=== PATIENT | female | born 1980 | race American Indian/Alaskan Native ===

== ENCOUNTER 2018-07-23 15:05 | Emergency (ER) | payer MEDICAID, OTHER ==
[2018-07-23] MEDS ORDERED: Iohexol 240 (50 ml) PO ONE (16:53)
[2018-07-23] MEDS ORDERED: Sodium Chloride 0.9% 1,000 ML IV STA (16:58)
--- NOTE | 2018-07-23 17:01 | ED PDOC ---
HPI: Abdomen Time Seen by Provider: 07/23/18 15:30 Chief Complaint (Nursing): Abdominal Pain Chief Complaint (Provider): Abdominal Pain History Per: Patient History/Exam Limitations: no limitations Onset/Duration Of Symptoms: Persistent, Worse Since (today) Current Symptoms Are (Timing): Still Present Additional Complaint(s): 37 year old female presents to ED with a complaint of diffuse abdominal pain, ongoing for a few months but worsen today. She reports associated nausea and loose stools but denies any fever or chills. Patient states that she had similar symptoms in the past and was advised to follow up with specialist but has not, yet, made an appointment. PCP: none provided Past Medical History Reviewed: Historical Data, Nursing Documentation, Vital Signs Vital Signs: Last Vital Signs Temp 98.2 F 07/23/18 15:45 Pulse 84 07/23/18 15:45 Resp 18 07/23/18 15:45 BP 112/75 07/23/18 15:45 Pulse Ox 100 07/23/18 15:45 - Medical History PMH: Bipolar Disorder, Hypercholesterolemia - Family History Family History: States: Unknown Family Hx - Home Medications Home Medications: Ambulatory Orders Medication Instructions Recorded Ciprofloxacin HCl [Cipro] 500 mg PO BID #20 tab 07/23/18 Metronidazole [Flagyl] 500 mg PO TID #30 tablet 07/23/18 - Allergies Allergies/Adverse Reactions: Allergies Allergy/AdvReac Type Severity Reaction Status Date / Time meperidine [From Demerol] Allergy RASH Verified 07/23/18 15:45 Review of Systems ROS Statement: Except As Marked, All Systems Reviewed And Found Negative Constitutional: Negative for: Fever, Chills Gastrointestinal: Positive for: Nausea, Abdominal Pain. Negative for: Vomiting Physical Exam - Reviewed Nursing Documentation Reviewed: Yes Vital Signs Reviewed: Yes - Physical Exam Appears: Positive for: Non-toxic, No Acute Distress Head Exam: Positive for: ATRAUMATIC, NORMAL INSPECTION, NORMOCEPHALIC Skin: Positive for: Normal Color Eye Exam: Positive for: Normal appearance ENT: Positive for: Normal ENT Inspection Neck: Positive for: Normal Cardiovascular/Chest: Positive for: Regular Rate, Rhythm Respiratory: Positive for: Normal Breath Sounds. Negative for: Respiratory Distress Gastrointestinal/Abdominal: Positive for: Soft, Tenderness (diffusely). Negative for: Guarding, Rebound Back: Positive for: Normal Inspection. Negative for: L CVA Tenderness, R CVA Tenderness Extremity: Positive for: Normal ROM (upper/lower) Neurologic/Psych: Positive for: Alert, Oriented - Laboratory Results Result Diagrams: 07/23/18 17:26 07/23/18 17:26 Urine POC: Negative - ECG O2 Sat by Pulse Oximetry: 100 (RA) Pulse Ox Interpretation: Normal Medical Decision Making Medical Decision Making: Initial Impression: Abdominal pain Initial Plan: * CT ABD/pelvis with PO and IV contrast * Labs * Omnipaque 240 50ml PO Time: 2038 --CT ABD/pelvis FINDINGS: LUNG BASES: The lung bases appear clear. No pleural effusions are seen. LIVER: Unremarkable. GALLBLADDER AND BILE DUCTS: The gallbladder appears within normal limits. No radioopaque gallstones are seen . No biliary ductal dilatation is evident. PANCREAS: Unremarkable. SPLEEN: Unremarkable. ADRENAL GLANDS: Unremarkable. KIDNEYS, URETERS, AND BLADDER: The kidneys appear within normal limits. There is no hydronephrosis or hydroureter. No urinary calculi are seen. STOMACH AND BOWEL: Thick walled fluid filled colon is noted with involvement of all segments compatible with diffuse pancolitis. Infectious and inflammatory etiologies are considered. Small hiatal hernia is noted. APPENDIX: No evidence of acute appendicitis on CT examination. PERITONEUM: No free fluid. No free air. LYMPH NODES: No lymphadenopathy is evident. REPRODUCTIVE: Unremarkable as visualized. VASCULATURE: No evidence of abdominal aortic aneurysm. BONES: No aggressive appearing osseous lesion. No acute osseous pathology evident. MISCELLANEOUS: Broad-based fat-containing umbilical hernia is noted. IMPRESSION: 1. Thick walled fluid filled colon is noted with involvement of all segments compatible with diffuse pancolitis. Infectious and inflammatory etiologies are considered. 2. Small hiatal hernia is noted. 3. Broad-based fat-containing umbilical hernia is noted. Time: 2155 --Upon provider reevaluation, patient is feeling better, medically stable, aware of CT rsults. pt tolerated po and requires no further treatment in the ED at this time. Patient will be discharged home with Rx for Cipro and Flagyl for colitis, and instructed to follow up with GI as an outpatient (cipro will cover colitis and also uti). Counseling was provided and all questions were answered regarding diagnosis. There is agreement to discharge plan. Return if symptoms persist or worsen. Clinical Impression: UTI; pancolitis Scribe Attestation: Documented by Shanti Arceo, acting as a scribe for Khanh Navarro MD. Provider Scribe Attestation: All medical record entries made by the Scribe were at my direction and personally dictated by me. I have reviewed the chart and agree that the record accurately reflects my personal performance of the history, physical exam, medical decision making, and the department course for this patient. I have also personally directed, reviewed, and agree with the discharge instructions and disposition. Disposition - Clinical Impression Clinical Impression: UTI (urinary tract infection), Pancolitis - Patient ED Disposition Is Patient to be Admitted: No Counseled Patient/Family Regarding: Studies Performed, Diagnosis, Need For Followup, Rx Given - Disposition Referrals: [facility] [Outside] [facility] [Outside] Edward Knutson MD, PhD [Staff Provider] - Disposition: Routine/Home Disposition Time: 21:56 Condition: IMPROVED Additional Instructions: follow up with your primary doctor in 1-2 days and with GI doctor return to the ED with any worsening or concerning symptoms Prescriptions: Ciprofloxacin HCl [Cipro] 500 mg PO BID #20 tab Metronidazole [Flagyl] 500 mg PO TID #30 tablet Instructions: Urinary Tract Infection, Adult (DC), Acute Abdomen (Belly Pain), Adult (DC) Forms: [place] ([place]), [facility] School/Work Excuse
[2018-07-23] MEDS ORDERED: Iohexol 240 (50 ml) ONE (17:28)
[2018-07-23 17:31] LABS: BASO # 0.1 K/uL (0.0-0.2); BASO % 0.8 % (0.0-2.0); EOS # 0.1 K/uL (0.0-0.7); EOS % 0.9 % (0.0-4.0); HEMOGLOBIN 12.9 g/dL (12.0-16.0); LYMPH # 2.4 K/uL (1.0-4.3); LYMPH % 31.4 % (20.0-40.0); MEAN CELL VOLUME 86.5 fl (81.0-99.0); MEAN CORPUSCULAR HEMOGLOBIN 28.5 pg (27.0-31.0); MEAN CORPUSCULAR HGB CONC 32.9 g/dL (33.0-37.0); MEAN PLATELET VOLUME 7.9 fl (7.2-11.7); MONO # 0.5 K/uL (0.0-0.8); MONO % 7.1 % (0.0-10.0); NEUT # 4.6 K/uL (1.8-7.0); NEUT % 59.8 % (50.0-75.0); NRBC % 0.1 % (0.0-0.0); RBC 4.55 Mil/uL (3.80-5.20); WHITE BLOOD COUNT 7.6 K/uL (4.8-10.8)
[2018-07-23 18:03] LABS: URINE CLARITY CLOUDY (Clear); URINE COLOR YELLOW (YELLOW); URINE GLUCOSE (UA) NEGATIVE (Normal)
[2018-07-23 18:04] LABS: URINE BILIRUBIN NEGATIVE (NEGATIVE); URINE BLOOD SMALL (NEGATIVE); URINE LEUKOCYTE ESTERASE LARGE Leu/uL (Negative); URINE PROTEIN 30 mg/dL (NEGATIVE); URINE UROBILINOGEN 0.2-1.0 mg/dL (0.2-1.0)
[2018-07-23 18:05] LABS: SQUAMOUS EPITHIAL 33 /hpf (0-5); URINE BACTERIA OCC (<OCC); URINE HYALINE CAST 0-2 /hpf (0-2)
[2018-07-23 18:07] LABS: ALB/GLOB RATIO 1.1 (1.0-2.1); ALBUMIN 4.3 g/dL (3.5-5.0); BLOOD UREA NITROGEN 14 mg/dl (7-17); CALCIUM 9.7 mg/dL (8.4-10.2); GFR NON-AFRICAN AMERICAN > 60
[2018-07-23 18:08] LABS: ALT/SGPT 34 U/L (9-52); AST/SGOT 28 U/L (14-36); LIPASE 158 U/L (23-300)
[2018-07-23] MEDS ORDERED: Iohexol 300 100 ML IJ ONE (18:12)
[2018-07-23] MEDS ORDERED: Sodium Chloride 0.9% 50 ML IV ONE (18:12)
[2018-07-23 21:05] VITALS: O2SAT 100
[2018-07-23 22:16] VITALS: BP 113/63; PULSE 80; RESP 16; TEMP 98.7
--- NOTE | 2018-07-24 11:39 | CT ---
Date of service: 07/23/2018 PROCEDURE: CT Abdomen and Pelvis with contrast HISTORY: abd pain diffuse COMPARISON: None. TECHNIQUE: Contrast dose: 90 mL Omnipaque 300 Radiation dose: Total exam DLP = 334.25 mGy-cm. This CT exam was performed using one or more of the following dose reduction techniques: Automated exposure control, adjustment of the mA and/or kV according to patient size, and/or use of iterative reconstruction technique. FINDINGS: LOWER THORAX: Unremarkable. LIVER: Possible minimal diffuse fatty infiltration. No gross lesion or ductal dilatation. GALLBLADDER AND BILE DUCTS: Unremarkable. PANCREAS: Unremarkable. No gross lesion or ductal dilatation. SPLEEN: Unremarkable. ADRENALS: Unremarkable. No mass. KIDNEYS AND URETERS: No hydronephrosis. Two sub cm left renal benign-appearing hypodensities statistically these are most likely small incidental left renal cysts VASCULATURE: Unremarkable. No aortic aneurysm. No aortic atherosclerotic calcification or mural plaque present. BOWEL: Unremarkable. No obstruction. No gross mural thickening. APPENDIX: Portions of the appendix are bleed identified and appear unremarkable. PERITONEUM: Unremarkable. No free fluid. No free air. LYMPH NODES: Unremarkable. No enlarged lymph nodes. BLADDER: The bladder is thick walled in appearance however it is also on distended. This status an project this appearance. Assessment of any potential bladder wall thickening not possible given the bladder underdistention. REPRODUCTIVE: Bilateral adnexal ovarian hypodensities probably relating to physiologic ovarian follicular cysts. No suspicious adnexal masses noted. For this pelvic ultrasound more sensitive. BONES: No acute fracture. OTHER FINDINGS: Small fat only containing umbilical hernia. No bowel containing hernias noted. IMPRESSION: No bowel obstruction gross small large bowel pathology noted. The preliminary [place] rad report mention pancolitis-. I do not appreciate this. No pericolonic inflammatory changes noted. The portions of the appendix that are seen appear unremarkable. Probable Probable small physiologic changes in the ovaries.-for this consider pelvic ultrasound to further evaluate. Limited bladder wall assessment given under distension.
== END 2018-07-23 22:35 | disposition home or self-care (01) ==
LOC: H.ER 15:05
DX: N39.0 Urinary tract infection, site not specified (principal); K52.9 Noninfective gastroenteritis and colitis, unspecified; Z86.59 Personal history of other mental and behavioral disorders
CPT/HCPCS: 74177; 80053; 81003; 81025; 83690; 85025; 87086; 96360; 99285; J2405; J7030; Q9966; Q9967